=== PATIENT | male | born 1955 | race Caucasian/White ===

== ENCOUNTER → 2016-11-16 | Outpatient (CLI) | payer BC ==
[2016-01-22 13:45] VITALS: BP 136/83
[~2016-11-16] MED LIST: AMLO10TA2 PO; ASPI81TA2 PO; BISO1TAB4 PO; CHOL10003 PO; CITA10TA4 PO; FENO160T PO; SIMV20TA3 PO; TAMS0.4C2 PO; VENTOLIN HFA18 GM INH
--- NOTE | 2016-11-16 14:27 | KCIC ---
PROCEDURE Three-view lumbar spine series HISTORY Low back pain. Back pain and bilateral hip pain for 6 weeks. FINDINGS Mild dextroscoliosis is seen. No compression fracture or discitis or osteolytic process or anterolisthesis is seen. Mild degenerative endplate spurring is seen throughout the lumbar spine. IMPRESSION Mild dextroscoliosis and degenerative lumbar spondylosis. Electronically signed by: Raymond Pino MD (Nov 16, 2016 14:25:20)
== END | disposition home or self-care (01) ==
LOC: KCIC 13:25
PROVIDERS: ATTEND Family Medicine
DX: M54.5 Low back pain (principal); M47.896 Other spondylosis, lumbar region
CPT/HCPCS: 72100

== ENCOUNTER → 2017-04-21 | Outpatient (CLI) | payer BC ==
[2016-01-22 13:45] VITALS: BP 136/83
[~2017-04-21] MED LIST changes: +ASPI-630 PO; -ASPI81TA2 PO
--- NOTE | 2017-04-21 13:05 | KCIC ---
CHEST PA LATERAL History: Hypercalcemia Comparison: None. Findings: There is no infiltrate, pneumothorax, or effusion. The cardiac silhouette is within normal limits in size. There is a small although fairly opaque nodule of the right lung base. Impression: 1. There is no infiltrate. There is probable small although fairly opaque nodule of the right lung base. CT would be more sensitive for detection and evaluation of pulmonary nodules. Electronically signed by: Delvin Roland MD (04/21/2017 1:02 PM) [id number]
== END | disposition home or self-care (01) ==
LOC: KCIC 11:08
PROVIDERS: ATTEND Family Medicine
DX: E83.52 Hypercalcemia (principal); R91.8 Other nonspecific abnormal finding of lung field
CPT/HCPCS: 71020

== ENCOUNTER → 2019-03-06 | Outpatient (CLI) | payer BC ==
[2016-01-22 13:45] VITALS: BP 136/83
[~2019-03-06] MED LIST changes: -AMLO10TA2 PO; +AMLO10TA8 PO
--- NOTE | 2019-03-06 13:55 | RAD ---
Examination: RENAL COMPLETE BILATERAL History: Decreased renal function Comparison/Correlation: 09/23/2015 renal ultrasound exam Findings: Right kidney measures 11.9 cm x 6 cm x 6.2 cm. Left kidney measures 11.9 cm x 5 cm x 5.9 cm. Normal renal contours. Normal renal echotexture. No hydronephrosis. No suggestion of renal calculus. Urinary bladder is mostly decompressed. Impression: Unremarkable exam. Electronically signed by: aDkota Quiñones MD (03/06/2019 1:52 PM) [facility]
== END | disposition home or self-care (01) ==
LOC: US 12:22
PROVIDERS: ATTEND Family Medicine
DX: R94.4 Abnormal results of kidney function studies (principal)
CPT/HCPCS: 76770

== ENCOUNTER 2019-07-10 16:55 | Inpatient (IN) | payer BC ==
[~2019-07-10] VITALS: Ht 175.3 cm; Wt 100.9 kg
[~2019-07-10 16:55] MED LIST changes: +SIMV20TA18 PO; -SIMV20TA3 PO
--- NOTE | 2019-07-10 17:25 | PHYS DOC ---
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 Patient feels nauseous, having trouble breathing as well. Patient is a smoker, nonproductive cough for several days as well. he denies any recent travel or operation. Patient had no history of heart disease, no history of diabetes, no history of blood clot disorder. Patient has history of colon cancer, had partial colectomy done 9 years ago. He denies any fever. Patient denies any abdominal pain, no diarrhea, or constipation problem. Patient denied the pain radiated anywhere. Patient said the pain got worse with exertion or coughing. All other ROS is negative unless otherwise noted in HPI Review of Systems Review of Systems See above Current Medications Current Medications Current Medications Medications (Trade) Dose Ordered Sig/Jimbo Start Time Stop Time Status Last Admin Dose Admin Albuterol/ Ipratropium (Duoneb) 3 ml RTQID 07/10/19 20:00 07/11/19 19:59 Aspirin (Nasima Aspirin) 325 mg 1X ONCE 07/10/19 17:30 07/10/19 17:31 DC 07/10/19 17:42 325 MG Methylprednisolone Sodium Succinate (SOLU-Medrol 125MG VIAL) 125 mg 1X ONCE 07/10/19 17:30 07/10/19 17:31 DC 07/10/19 17:42 125 MG Nitroglycerin (Nitrostat) 0.4 mg PRN Q5MIN PRN 07/10/19 17:45 07/11/19 17:44 07/10/19 17:43 0.4 MG Ondansetron HCl (Zofran) 4 mg PRN Q8HRS PRN 07/10/19 17:45 07/11/19 17:44 Sodium Chloride 500 ml @ 500 mls/hr 1X ONCE 07/10/19 17:45 07/10/19 18:44 Allergies Allergies Allergies Coded Allergies Type Severity Reaction Last Updated Verified No Known Allergies Allergy Unknown 01/22/16 Yes Physical Exam Physical Exam See above Constitutional: Well developed, well nourished, no acute distress, non-toxic appearance. [] HENT: Normocephalic, atraumatic, bilateral external ears normal, oropharynx moist, no oral exudates, nose normal. [] Eyes: PERRLA, EOMI, conjunctiva normal, no discharge. [] Neck: Normal range of motion, no tenderness, supple, no stridor. [] Cardiovascular:Heart rate regular rhythm, no murmur [] Lungs & Thorax: Bilateral breath sounds with wheezing, decreased air movement in all lung carey. Abdomen: Bowel sounds normal, soft, no tenderness, no masses, no pulsatile masses. [] Skin: Warm, dry, no erythema, no rash. [] Back: No tenderness, no CVA tenderness. [] Extremities: No tenderness, no cyanosis, no clubbing, ROM intact, no edema. [] Neurologic: Alert and oriented X 3, normal motor function, normal sensory function, no focal deficits noted. [] Psychologic: Affect normal, judgement normal, mood normal. [] Current Patient Data Vital Signs Vital Signs Date Time Temp Pulse Resp B/P (MAP) Pulse Ox O2 Delivery O2 Flow Rate FiO2 07/10/19 17:43 62 138/86 07/10/19 17:31 96 Nasal Cannula 2.0 07/10/19 16:55 97.9 24 97.9 Lab Values Laboratory Tests Test 07/10/19 17:20 White Blood Count 10.6 x10^3/uL (4.0-11.0) Red Blood Count 5.30 x10^6/uL (4.30-5.70) Hemoglobin 16.5 g/dL (13.0-17.5) Hematocrit 48.2 % (39.0-53.0) Mean Corpuscular Volume 91 fL (79-100) Mean Corpuscular Hemoglobin 31 pg (25-35) Mean Corpuscular Hemoglobin Concent 34 g/dL (31-37) Red Cell Distribution Width 13.6 % (11.5-14.5) Platelet Count 326 x10^3/uL (140-400) Neutrophils (%) (Auto) 65 % (31-73) Lymphocytes (%) (Auto) 21 % (24-48) L Monocytes (%) (Auto) 11 % (0-9) H Eosinophils (%) (Auto) 2 % (0-3) Basophils (%) (Auto) 1 % (0-3) Neutrophils # (Auto) 6.9 x10^3/uL (1.8-7.7) Lymphocytes # (Auto) 2.2 x10^3/uL (1.0-4.8) Monocytes # (Auto) 1.1 x10^3/uL (0.0-1.1) Eosinophils # (Auto) 0.2 x10^3/uL (0.0-0.7) Basophils # (Auto) 0.1 x10^3/uL (0.0-0.2) Prothrombin Time 12.4 SEC (11.7-14.0) Prothrombin Time INR 1.0 (0.8-1.1) Sodium Level 141 mmol/L (136-145) Potassium Level 3.4 mmol/L (3.5-5.1) L Chloride Level 99 mmol/L (98-107) Carbon Dioxide Level 31 mmol/L (21-32) Anion Gap 11 (6-14) Blood Urea Nitrogen 26 mg/dL (8-26) Creatinine 1.9 mg/dL (0.7-1.3) H Estimated GFR (Cockcroft-Gault) 36.0 BUN/Creatinine Ratio 14 (6-20) Glucose Level 132 mg/dL (70-99) H Calcium Level 9.5 mg/dL (8.5-10.1) Magnesium Level 1.4 mg/dL (1.8-2.4) L Total Bilirubin 0.4 mg/dL (0.2-1.0) Aspartate Amino Transferase (AST) 17 U/L (15-37) Alanine Aminotransferase (ALT) 18 U/L (16-63) Alkaline Phosphatase 62 U/L (46-116) Troponin I Quantitative 0.030 ng/mL (0.000-0.055) KB-Ggm-H-Type Natriuretic Peptide 3490 pg/mL (0-124) H Total Protein 7.5 g/dL (6.4-8.2) Albumin 3.5 g/dL (3.4-5.0) Albumin/Globulin Ratio 0.9 (1.0-1.7) L Lipase 208 U/L (73-393) Laboratory Tests 11/12/19 17:20 Laboratory Tests 07/10/19 17:20 EKG EKG EKG WAS READ BY THIS PHYSICIAN AT 1704, RATE OF 57 BPM, NO STEMI, Q WAVE IN INFERIOR LEAD. Radiology/Procedures Radiology/Procedures [] Course & Med Decision Making Course & Med Decision Making Pertinent Labs and Imaging studies reviewed. (See chart for details) [] Dragon Disclaimer Dragon Disclaimer This electronic medical record was generated, in whole or in part, using a voice recognition dictation system. Departure Departure Impression: Primary Impression: Chest pain Additional Impression: COPD exacerbation Disposition: ADMITTED INPATIENT Admitting Physician: RYANN (DR. EUBANKS) Condition: STABLE Referrals: DEANNA VELÁZQUEZ MD (PCP) Problem Qualifiers SUSIE HO DO Jul 10, 2019 17:25
[2019-07-10 17:29] LABS: BASO # 0.1 x10^3/uL (0.0-0.2); BASO % 1 % (0-3); EOS # 0.2 x10^3/uL (0.0-0.7); EOS % 2 % (0-3); HEMATOCRIT 48.2 % (39.0-53.0); HEMOGLOBIN 16.5 g/dL (13.0-17.5); LYMPH # 2.2 x10^3/uL (1.0-4.8); LYMPH % 21 % (24-48); MEAN CORPUSCULAR HEMOGLOBIN 31 pg (25-35); MEAN CORPUSCULAR HGB CONC 34 g/dL (31-37); MEAN CORPUSCULAR VOLUME 91 fL (79-100); MONO # 1.1 x10^3/uL (0.0-1.1); MONO % 11 % (0-9); NEUT # 6.9 x10^3/uL (1.8-7.7); NEUT % 65 % (31-73); PLATELET COUNT 326 x10^3/uL (140-400); RED CELL DISTRIBUTION WIDTH 13.6 % (11.5-14.5); WHITE BLOOD COUNT 10.6 x10^3/uL (4.0-11.0)
[2019-07-10] MEDS ORDERED: ASPIRIN 325 MG TABLET PO ONE (17:30)
[2019-07-10] MEDS ORDERED: IPRATRPIUM/ALBUTEROL 0.5/2.5MG 3 ML NEBU. NEB ONE (17:30)
[2019-07-10] MEDS ORDERED: NITROGLYCERIN SUBLINGUAL 0.4 MG BOTTLE OF 25. SL PRN ×2 (17:30→17:45)
[2019-07-10] MEDS ORDERED: methylPREDNISolone SOD SUCC PF 125 MG/2 ML VIAL. IV ONE (17:30)
[2019-07-10 17:37] LABS: CALCIUM 9.5 mg/dL (8.5-10.1); CREATININE 1.9 mg/dL (0.7-1.3); POTASSIUM 3.4 mmol/L (3.5-5.1)
[2019-07-10 17:38] LABS: PROTHROMBIN TIME PATIENT 12.4 SEC (11.7-14.0)
[2019-07-10 17:44] LABS: ALBUMIN 3.5 g/dL (3.4-5.0); ALBUMIN/GLOBULIN RATIO 0.9 (1.0-1.7); MAGNESIUM 1.4 mg/dL (1.8-2.4); TOTAL BILIRUBIN 0.4 mg/dL (0.2-1.0); TOTAL PROTEIN 7.5 g/dL (6.4-8.2)
[2019-07-10] MEDS ORDERED: IV NORMAL SALINE 500ML BAG 500 ML IV ONE (17:45)
[2019-07-10] MEDS ORDERED: ONDANSETRON PF 4 MG/2 ML VIAL. IV PRN ×2 (17:45→20:45)
--- NOTE | 2019-07-10 17:57 | RAD ---
Exam: Chest one view INDICATION: Shortness of breath, cough TECHNIQUE: Frontal view of the chest Comparisons: 04/21/2017 FINDINGS: The cardiomediastinal silhouette and pulmonary vessels are within normal limits. Linear bandlike opacity noted at the left midlung, likely representing atelectasis. Remaining lungs are clear. No pleural effusion. IMPRESSION: Left mid and basilar atelectasis. Electronically signed by: Ana Dinh MD (07/10/2019 5:55 PM) [facility]
--- NOTE | 2019-07-10 18:19 | RAD ---
Examination: CT chest without contrast HISTORY: History of cough COMPARISON: 03/24/2011 TECHNIQUE: Axial CT images of the chest were performed without contrast. Coronal and sagittal reformats are performed Exposure: One or more of the following individualized dose reduction techniques were utilized for this examination: 1. Automated exposure control 2. Adjustment of the mA and/or kV according to patient size 3. Use of iterative reconstruction technique FINDINGS: The central airways are patent. Coronary artery calcifications identified. No evidence for significant mediastinal lymphadenopathy identified. 3 mm nodule identified in the right upper lobe of the lung. Small focus of airspace opacity identified in the right middle lobe of the lung, left lingula of the lung likely atelectasis or infiltrates. No evidence of pleural effusion or pneumothorax. The visualized noncontrasted liver, adrenals grossly appears unremarkable. Few calcified granulomas identified in the spleen. Mild bilateral perinephric fat stranding identified. Mild degenerative changes thoracic spine. IMPRESSION: 1. Small focus of airspace opacity identified in the right middle lobe, left lingula of the lung likely atelectasis or infiltrates. 2. 3 mm nodule identified in the right upper lobe with lung. Recommend follow-up CT in 12 months per Fleischner Society guidelines. Electronically signed by: Rupert Root MD (07/10/2019 6:17 PM) [facility]
[2019-07-10 19:40] VITALS: BP 152/91
[2019-07-10] MEDS ORDERED: LISI-334 PO (19:51)
[2019-07-10] MEDS ORDERED: ATOR40TA59 PO (19:54)
[2019-07-10] MEDS ORDERED: FINA5TAB4 PO (19:57)
[2019-07-10] MEDS ORDERED: IPRATRPIUM/ALBUTEROL 0.5/2.5MG 3 ML NEBU. NEB SCH (20:00)
--- NOTE | 2019-07-10 20:32 | PDOC1 ---
History and Physical Date of Admission Date of Admission DATE: 07/10/19 TIME: 20:29 Identification/Chief Complaint Chief Complaint seen in er , 64 year old male who presented to ER today for evaluation of substernal chest pain started last night. Patient feels nauseous, having trouble breathing Patient is a smoker, nonproductive cough for several days he denies any recent travel or operation. Patient had no history of heart disease, no history of diabetes, no history of blood clot disorder. 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 Past Surgical History: Other Additional Past Surgical Histo: COLOSTOMY WITH TAKEDOWN, CYST REMOVED FROM NOSE Alcohol Use: Rarely Drug Use: None fhx obesity Cardiovascular: HTN, Hyperlipidemia Family History Family History: Hypertension Social History Smoke: 1 pack per day ALCOHOL: occassional Drugs: None Current Problem List Problem List Problems Medical Problems: (1) Chest pain Status: Acute (2) COPD exacerbation Status: Acute Current Medications Current Medications Current Medications Aspirin (Nasima Aspirin) 325 mg 1X ONCE PO Last administered on 07/10/19at 17:42; Start 07/10/19 at 17:30; Stop 07/10/19 at 17:31; Status DC Nitroglycerin (Nitrostat) 0.4 mg PRN Q5MIN PRN SL CP RATING > 1/10; Start 07/10/19 at 17:30; Stop 07/10/19 at 17:39; Status DC Methylprednisolone Sodium Succinate (SOLU-Medrol 125MG VIAL) 125 mg 1X ONCE IV Last administered on 07/10/19at 17:42; Start 07/10/19 at 17:30; Stop 07/10/19 at 17:31; Status DC Albuterol/ Ipratropium (Duoneb) 3 ml 1X ONCE NEB Last administered on 07/10/19at 17:31; Start 07/10/19 at 17:30; Stop 07/10/19 at 17:31; Status DC Ondansetron HCl (Zofran) 4 mg PRN Q8HRS PRN IV NAUSEA/VOMITING; Start 07/10/19 at 17:45; Stop 07/11/19 at 17:44 Nitroglycerin (Nitrostat) 0.4 mg PRN Q5MIN PRN SL CHEST PAIN Last administered on 07/10/19at 17:43; Start 07/10/19 at 17:45; Stop 07/11/19 at 17:44 Albuterol/ Ipratropium (Duoneb) 3 ml RTQID NEB ; Start 07/10/19 at 20:00; Stop 07/11/19 at 19:59 Sodium Chloride 500 ml @ 500 mls/hr 1X ONCE IV Last administered on 07/10/19at 18:28; Start 07/10/19 at 17:45; Stop 07/10/19 at 18:44; Status DC Enoxaparin Sodium (Lovenox 100mg Syringe) 100 mg 1X ONCE SQ Last administered on 07/10/19at 18:27; Start 07/10/19 at 18:00; Stop 07/10/19 at 18:01; Status DC Active Scripts Active Reported Finasteride 5 Mg Tablet 5 Mg PO DAILY Atorvastatin Calcium 40 Mg Tablet 40 Mg PO HS Lisinopril 20 Mg Tablet 20 Mg PO DAILY Aspirin 81 Mg Tab.chew 1 Tab PO DAILY Citalopram Hbr (Citalopram Hydrobromide) 10 Mg Tablet 10 Mg PO DAILY Fenofibrate 160 Mg Tablet 160 Mg PO DAILY Ventolin Hfa Inhaler (Albuterol Sulfate) 18 Gm Hfa.aer.ad 1 Puff INH Q6HRS PRN Bisoprolol-Hctz 5-6.25 Mg Tab (Bisoprolol Fumarate/Hctz) 1 Each Tablet 1 Tab PO DAILY Amlodipine Besylate 10 Mg Tablet 10 Mg PO DAILY Allergies Allergies: Coded Allergies: No Known Allergies (Verified Allergy, Unknown, 01/22/16) ROS Review of System 14 pt ros otherwise neg General: No: Chills, Night Sweats, Fatigue, Malaise, Appetite, Other PSYCHOLOGICAL ROS: No: Anxiety, Behavioral Disorder, Concentration difficultie, Decreased libido, Depression, Disorientation, Hallucinations, Hostility, Irritablity, Memory difficulties, Mood Swings, Obsessive thoughts, Physical abuse, Sexual abuse, Sleep disturbances, Suicidal ideation, Other HEENT: No: Heacaches, Visual Changes, Hearing change, Nasal congestion, Nasal discharge, Oral lesions, Sinus pain, Sore Throat, Epistaxis, Sneezing, Snoring, Tinnitus, Vertigo, Vocal changes, Other ALLERGY AND IMMUNOLOGY: No: Hives, Insect Bite Sensitivity, Itchy/Watery Eyes, Nasal Congestion, Post Nasal Drip, Seasonal Allergies, Other Hematological and Lymphatic: No: Bleeding Problems, Blood Clots, Blood Transfusions, Brusing, Night Sweats, Pallor, Swollen Lymph Nodes, Other Respiratory: YES: Cough, Shortness of breath, SOB with excertion, Sputum Changes, Wheezing; No: Hemoptysis, Orthopnea, Pleuritic Pain, Stridor, Tachypnea, Other Cardiovascular: yes Chest Pain; No Palpitations, No Orthopnea, No Paroxysmal Noc. Dyspnea, No Edema, No Lt Headedness, No Other Gastrointestinal: No Nausea, No Vomiting, No Abdominal Pain, No Diarrhea, No Constipation, No Melena, No Hematochezia, No Other Musculoskeletal: No Gait Disturbance, No Joint Pain, No Joint Stiffness, No Joint Swelling, No Muscle Pain, No Muscular Weakness, No Pain In:, No Swelling In:, No Other Skin: No Dry Skin, No Eczema, No Hair Changes, No Lumps, No Mole Changes, No Mottling, No Nail Changes, No Pruritus, No Rash, No Skin Lesion Changes, No Other, No Acne Physical Exam Physical Exam Physical Exam Physical Exam Constitutional: Well developed, well nourished, no acute distress, non-toxic appearance. [] HENT: Normocephalic, atraumatic, bilateral external ears normal, oropharynx moist, no oral exudates, nose normal. [] Eyes: PERRLA, EOMI, conjunctiva normal, no discharge. [] Neck: Normal range of motion, no tenderness, supple, no stridor. [] Cardiovascular:Heart rate regular rhythm, no murmur [] Lungs & Thorax: Bilateral breath sounds with wheezing, decreased air movement in all lung carey. Abdomen: Bowel sounds normal, soft, no tenderness, no masses, no pulsatile masses. post op changes, abd wall hernia [] Skin: Warm, dry, no erythema, no rash. [] Back: No tenderness, no CVA tenderness. [] Extremities: No tenderness, no cyanosis, no clubbing, ROM intact, no edema. [] Neurologic: Alert and oriented X 3, normal motor function, normal sensory function, no focal deficits noted. [] Psychologic: Affect normal, judgement normal, mood normal. [] General: Alert, Oriented X3, Cooperative HEENT: Atraumatic Heart: RRR Breasts: Not examined Abdomen: Normal bowel sounds, Soft Rectal Exam: not examined PELVIC: Examination not indicated Extremities: No clubbing, No cyanosis Neuro: Normal speech, Cranial nerves 3-12 NL Psych/Mental Status: Mental status NL, Mood NL Vitals Vitals Vital Signs Date Time Temp Pulse Resp B/P (MAP) Pulse Ox O2 Delivery O2 Flow Rate FiO2 07/10/19 19:47 96 Nasal Cannula 2.0 07/10/19 19:35 73 24 154/86 (108) 07/10/19 16:55 97.9 97.9 Labs Labs Laboratory Tests Test 07/10/19 17:20 White Blood Count 10.6 x10^3/uL (4.0-11.0) Red Blood Count 5.30 x10^6/uL (4.30-5.70) Hemoglobin 16.5 g/dL (13.0-17.5) Hematocrit 48.2 % (39.0-53.0) Mean Corpuscular Volume 91 fL (79-100) Mean Corpuscular Hemoglobin 31 pg (25-35) Mean Corpuscular Hemoglobin Concent 34 g/dL (31-37) Red Cell Distribution Width 13.6 % (11.5-14.5) Platelet Count 326 x10^3/uL (140-400) Neutrophils (%) (Auto) 65 % (31-73) Lymphocytes (%) (Auto) 21 % (24-48) Monocytes (%) (Auto) 11 % (0-9) Eosinophils (%) (Auto) 2 % (0-3) Basophils (%) (Auto) 1 % (0-3) Neutrophils # (Auto) 6.9 x10^3/uL (1.8-7.7) Lymphocytes # (Auto) 2.2 x10^3/uL (1.0-4.8) Monocytes # (Auto) 1.1 x10^3/uL (0.0-1.1) Eosinophils # (Auto) 0.2 x10^3/uL (0.0-0.7) Basophils # (Auto) 0.1 x10^3/uL (0.0-0.2) Prothrombin Time 12.4 SEC (11.7-14.0) Prothromb Time International Ratio 1.0 (0.8-1.1) Sodium Level 141 mmol/L (136-145) Potassium Level 3.4 mmol/L (3.5-5.1) Chloride Level 99 mmol/L (98-107) Carbon Dioxide Level 31 mmol/L (21-32) Anion Gap 11 (6-14) Blood Urea Nitrogen 26 mg/dL (8-26) Creatinine 1.9 mg/dL (0.7-1.3) Estimated GFR (Cockcroft-Gault) 36.0 BUN/Creatinine Ratio 14 (6-20) Glucose Level 132 mg/dL (70-99) Calcium Level 9.5 mg/dL (8.5-10.1) Magnesium Level 1.4 mg/dL (1.8-2.4) Total Bilirubin 0.4 mg/dL (0.2-1.0) Aspartate Amino Transf (AST/SGOT) 17 U/L (15-37) Alanine Aminotransferase (ALT/SGPT) 18 U/L (16-63) Alkaline Phosphatase 62 U/L (46-116) Troponin I Quantitative 0.030 ng/mL (0.000-0.055) EP-Jdx-U-Type Natriuretic Peptide 3490 pg/mL (0-124) Total Protein 7.5 g/dL (6.4-8.2) Albumin 3.5 g/dL (3.4-5.0) Albumin/Globulin Ratio 0.9 (1.0-1.7) Lipase 208 U/L (73-393) Laboratory Tests Test 07/10/19 17:20 White Blood Count 10.6 x10^3/uL (4.0-11.0) Red Blood Count 5.30 x10^6/uL (4.30-5.70) Hemoglobin 16.5 g/dL (13.0-17.5) Hematocrit 48.2 % (39.0-53.0) Mean Corpuscular Volume 91 fL (79-100) Mean Corpuscular Hemoglobin 31 pg (25-35) Mean Corpuscular Hemoglobin Concent 34 g/dL (31-37) Red Cell Distribution Width 13.6 % (11.5-14.5) Platelet Count 326 x10^3/uL (140-400) Neutrophils (%) (Auto) 65 % (31-73) Lymphocytes (%) (Auto) 21 % (24-48) Monocytes (%) (Auto) 11 % (0-9) Eosinophils (%) (Auto) 2 % (0-3) Basophils (%) (Auto) 1 % (0-3) Neutrophils # (Auto) 6.9 x10^3/uL (1.8-7.7) Lymphocytes # (Auto) 2.2 x10^3/uL (1.0-4.8) Monocytes # (Auto) 1.1 x10^3/uL (0.0-1.1) Eosinophils # (Auto) 0.2 x10^3/uL (0.0-0.7) Basophils # (Auto) 0.1 x10^3/uL (0.0-0.2) Prothrombin Time 12.4 SEC (11.7-14.0) Prothromb Time International Ratio 1.0 (0.8-1.1) Sodium Level 141 mmol/L (136-145) Potassium Level 3.4 mmol/L (3.5-5.1) Chloride Level 99 mmol/L (98-107) Carbon Dioxide Level 31 mmol/L (21-32) Anion Gap 11 (6-14) Blood Urea Nitrogen 26 mg/dL (8-26) Creatinine 1.9 mg/dL (0.7-1.3) Estimated GFR (Cockcroft-Gault) 36.0 BUN/Creatinine Ratio 14 (6-20) Glucose Level 132 mg/dL (70-99) Calcium Level 9.5 mg/dL (8.5-10.1) Magnesium Level 1.4 mg/dL (1.8-2.4) Total Bilirubin 0.4 mg/dL (0.2-1.0) Aspartate Amino Transf (AST/SGOT) 17 U/L (15-37) Alanine Aminotransferase (ALT/SGPT) 18 U/L (16-63) Alkaline Phosphatase 62 U/L (46-116) Troponin I Quantitative 0.030 ng/mL (0.000-0.055) YN-Hqr-L-Type Natriuretic Peptide 3490 pg/mL (0-124) Total Protein 7.5 g/dL (6.4-8.2) Albumin 3.5 g/dL (3.4-5.0) Albumin/Globulin Ratio 0.9 (1.0-1.7) Lipase 208 U/L (73-393) Images Images REASON: cough, soa, chest pain PROCEDURE: CT CHEST WO CONTRAST Examination: CT chest without contrast HISTORY: History of cough COMPARISON: 03/24/2011 TECHNIQUE: Axial CT images of the chest were performed without contrast. Coronal and sagittal reformats are performed Exposure: One or more of the following individualized dose reduction techniques were utilized for this examination: 1. Automated exposure control 2. Adjustment of the mA and/or kV according to patient size 3. Use of iterative reconstruction technique FINDINGS: The central airways are patent. Coronary artery calcifications identified. No evidence for significant mediastinal lymphadenopathy identified. 3 mm nodule identified in the right upper lobe of the lung. Small focus of airspace opacity identified in the right middle lobe of the lung, left lingula of the lung likely atelectasis or infiltrates. No evidence of pleural effusion or pneumothorax. The visualized noncontrasted liver, adrenals grossly appears unremarkable. Few calcified granulomas identified in the spleen. Mild bilateral perinephric fat stranding identified. Mild degenerative changes thoracic spine. IMPRESSION: 1. Small focus of airspace opacity identified in the right middle lobe, left lingula of the lung likely atelectasis or infiltrates. 2. 3 mm nodule identified in the right upper lobe with lung. Recommend follow-up CT in 12 months per Fleischner Society guidelines. Electronically signed by: Rupert Root MD (07/10/2019 6:17 PM) [facility] VTE Prophylaxis Ordered VTE Prophylaxis Devices: Yes VTE Pharmacological Prophylaxi: Yes Assessment/Plan Assessment/Plan IMPRESSION: 1. Small focus of airspace opacity identified in the right middle lobe, left lingula of the lung likely atelectasis vs infiltrates. 2. 3 mm nodule identified in the right upper lobe // lung. 3. Chest pain with concern for ASHD., MODERATE RISK 4. tobacco abuse disorder 5. acute COPD exacerbation 6. hypertension 7. hyperlipidemia 8. ACUTE HYPOXIC RESP FAILURE plan admit cvc bed serial troponin i echo cardiology consult flp iv zosyn duonebs qid pulm consult dvt prophylaxis TOBACCO CESSATION DISCUSSED IV STEROID TAPER O2 SUPPORT PO PROTONIX GI PROPHYLAXIS BRIGIDA EUBANKS MD Jul 10, 2019 20:32
[2019-07-10] MEDS ORDERED: ZOLPIDEM 5 MG TABLET. PO PRN (20:45)
[2019-07-10] MEDS ORDERED: ACETAMINOPHEN 325 MG TABLET. PO PRN (20:45)
[2019-07-10] MEDS ORDERED: DOCUSATE SODIUM 100 MG CAPSULE. PO PRN (20:45)
[2019-07-10] MEDS ORDERED: MAG HYDROX/ALUMINUM HYD/SIMETH 30 ML ORAL.SUSP PO PRN (20:45)
[2019-07-10] MEDS ORDERED: LORazepam 0.5 MG TABLET PO PRN (20:45)
[2019-07-10] MEDS ORDERED: 0.9 % SODIUM CHLORIDE 10 ML DISP.SYRIN. IV PRN (20:45)
[2019-07-10] MEDS ORDERED: cloNIDine HCL 0.1 MG TABLET PO PRN (20:45)
[2019-07-10] MEDS ORDERED: ALBUTEROL SULFATE 2.5 MG/3 ML NEBU. NEB PRN (21:00)
[2019-07-10] MEDS: ATORVASTATIN CALCIUM 40 MG TABLET. PO SCH (22:51)
[2019-07-10] MEDS: PIPERACILLIN/TAZOBACTAM 3.375 GM in IV NORMAL SALINE 50ML 50 ML IV SCH (22:52)
[2019-07-10 23:40] VITALS: BP 129/65
[2019-07-11] MEDS: IPRATRPIUM/ALBUTEROL 0.5/2.5MG 3 ML NEBU. NEB SCH ×7 (00:19→23:13)
[2019-07-11] MEDS: PIPERACILLIN/TAZOBACTAM 3.375 GM in IV NORMAL SALINE 50ML 50 ML IV SCH ×5 (01:33→23:51)
[2019-07-11 03:50] VITALS: BP 106/62
--- NOTE | 2019-07-11 07:23 | EKG ---
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
[2019-07-11 07:36] VITALS: BP 125/69
[2019-07-11] MEDS: hydroCHLOROthiazide 25 MG TABLET PO SCH (08:15)
[2019-07-11] MEDS: ATENOLOL 50 MG TABLET. PO SCH (08:15)
[2019-07-11] MEDS: LISINOPRIL 20 MG TABLET PO SCH (08:16)
[2019-07-11] MEDS: FINASTERIDE 5 MG TABLET. PO SCH (08:16)
[2019-07-11] MEDS: ASPIRIN CHEWABLE 81 MG TABLET. PO SCH (08:16)
[2019-07-11] MEDS: CITALOPRAM 10 MG TABLET. PO SCH (08:16)
[2019-07-11] MEDS: amLODIPine BESYLATE 10 MG TABLET PO SCH (08:17)
[2019-07-11] MEDS: ENOXAPARIN 40 MG/0.4 ML SYRINGE. SQ SCH (08:17)
[2019-07-11] MEDS: FENOFIBRATE,MICRONIZED 134 MG CAPSULE PO SCH (08:17)
--- NOTE | 2019-07-11 10:16 | PDOC ---
[employer] PROGRESS NOTE Chief Complaint Chief Complaint 1. Small focus of airspace opacity identified in the right middle lobe, left lingula of the lung likely atelectasis vs infiltrates. 2. 3 mm nodule identified in the right upper lobe // lung. 3. Chest pain with concern for ASHD., MODERATE RISK 4. tobacco abuse disorder 5. acute COPD exacerbation 6. hypertension 7. hyperlipidemia 8. ACUTE HYPOXIC RESP FAILURE History of Present Illness History of Present Illness 07/11/19 Pt seen and examined DW RN Chart reviewed Vitals/I&O Vitals/I&O: Vital Signs Date Time Temp Pulse Resp B/P (MAP) Pulse Ox O2 Delivery O2 Flow Rate FiO2 07/11/19 08:27 Nasal Cannula 2.0 07/11/19 08:17 109 125/69 07/11/19 08:00 95 07/11/19 07:36 97.3 18 97.3 I & O 07/10/19 07/10/19 07/11/19 15:00 23:00 07:00 Intake Total 360 ml 550 ml Output Total 100 ml 150 ml Balance 260 ml 400 ml Physical Exam General: Alert, Oriented X3, Cooperative Heart: Regular rate Lungs: Clear Abdomen: Normal bowel sounds, Soft Extremities: No clubbing, No cyanosis Skin: No rashes Labs Labs: Laboratory Tests Test 07/10/19 17:20 White Blood Count 10.6 x10^3/uL (4.0-11.0) Red Blood Count 5.30 x10^6/uL (4.30-5.70) Hemoglobin 16.5 g/dL (13.0-17.5) Hematocrit 48.2 % (39.0-53.0) Mean Corpuscular Volume 91 fL (79-100) Mean Corpuscular Hemoglobin 31 pg (25-35) Mean Corpuscular Hemoglobin Concent 34 g/dL (31-37) Red Cell Distribution Width 13.6 % (11.5-14.5) Platelet Count 326 x10^3/uL (140-400) Neutrophils (%) (Auto) 65 % (31-73) Lymphocytes (%) (Auto) 21 % (24-48) Monocytes (%) (Auto) 11 % (0-9) Eosinophils (%) (Auto) 2 % (0-3) Basophils (%) (Auto) 1 % (0-3) Neutrophils # (Auto) 6.9 x10^3/uL (1.8-7.7) Lymphocytes # (Auto) 2.2 x10^3/uL (1.0-4.8) Monocytes # (Auto) 1.1 x10^3/uL (0.0-1.1) Eosinophils # (Auto) 0.2 x10^3/uL (0.0-0.7) Basophils # (Auto) 0.1 x10^3/uL (0.0-0.2) Prothrombin Time 12.4 SEC (11.7-14.0) Prothromb Time International Ratio 1.0 (0.8-1.1) Sodium Level 141 mmol/L (136-145) Potassium Level 3.4 mmol/L (3.5-5.1) Chloride Level 99 mmol/L (98-107) Carbon Dioxide Level 31 mmol/L (21-32) Anion Gap 11 (6-14) Blood Urea Nitrogen 26 mg/dL (8-26) Creatinine 1.9 mg/dL (0.7-1.3) Estimated GFR (Cockcroft-Gault) 36.0 BUN/Creatinine Ratio 14 (6-20) Glucose Level 132 mg/dL (70-99) Calcium Level 9.5 mg/dL (8.5-10.1) Magnesium Level 1.4 mg/dL (1.8-2.4) Total Bilirubin 0.4 mg/dL (0.2-1.0) Aspartate Amino Transf (AST/SGOT) 17 U/L (15-37) Alanine Aminotransferase (ALT/SGPT) 18 U/L (16-63) Alkaline Phosphatase 62 U/L (46-116) Troponin I Quantitative 0.030 ng/mL (0.000-0.055) GL-Kvh-Y-Type Natriuretic Peptide 3490 pg/mL (0-124) Total Protein 7.5 g/dL (6.4-8.2) Albumin 3.5 g/dL (3.4-5.0) Albumin/Globulin Ratio 0.9 (1.0-1.7) Lipase 208 U/L (73-393) Review of Systems Review of Systems: CV: (-) CP Lungs: (+) SOB Assessment and Plan Assessmemt and Plan Problems Medical Problems: (1) Chest pain Status: Acute (2) COPD exacerbation Status: Acute 1. Small focus of airspace opacity identified in the right middle lobe, left lingula of the lung likely atelectasis vs infiltrates. 2. 3 mm nodule identified in the right upper lobe // lung. 3. Chest pain with concern for ASHD., MODERATE RISK 4. tobacco abuse disorder 5. acute COPD exacerbation 6. hypertension 7. hyperlipidemia 8. ACUTE HYPOXIC RESP FAILURE Plan: steroids breathing tx O2 abx serial troponin EKG Echo ASA await cardiology input Comment Review of Relevant I have reviewed the following items kati (where applicable) has been applied. Medications: Current Medications Medications (Trade) Dose Ordered Sig/Jimbo Route PRN Reason Start Time Stop Time Status Last Admin Dose Admin Aspirin (Nasima Aspirin) 325 mg 1X ONCE PO 07/10/19 17:30 07/10/19 17:31 DC 07/10/19 17:42 Methylprednisolone Sodium Succinate (SOLU-Medrol 125MG VIAL) 125 mg 1X ONCE IV 07/10/19 17:30 07/10/19 17:31 DC 07/10/19 17:42 Albuterol/ Ipratropium (Duoneb) 3 ml 1X ONCE NEB 07/10/19 17:30 07/10/19 17:31 DC 07/10/19 17:31 Nitroglycerin (Nitrostat) 0.4 mg PRN Q5MIN PRN SL CHEST PAIN 07/10/19 17:45 07/11/19 17:44 07/10/19 17:43 Albuterol/ Ipratropium (Duoneb) 3 ml RTQID NEB 07/10/19 20:00 07/10/19 20:53 DC 07/10/19 20:00 Sodium Chloride 500 ml @ 500 mls/hr 1X ONCE IV 07/10/19 17:45 07/10/19 18:44 DC 07/10/19 18:28 Enoxaparin Sodium (Lovenox 100mg Syringe) 100 mg 1X ONCE SQ 07/10/19 18:00 07/10/19 18:01 DC 07/10/19 18:27 Amlodipine Besylate (Norvasc) 10 mg DAILY PO 07/11/19 09:00 07/11/19 08:17 Aspirin (Children'S Aspirin) 81 mg DAILY PO 07/11/19 09:00 07/11/19 08:16 Atorvastatin Calcium (Lipitor) 40 mg HS PO 07/10/19 21:00 07/10/19 22:51 Citalopram Hydrobromide (CeleXA) 10 mg DAILY PO 07/11/19 09:00 07/11/19 08:16 Finasteride (Proscar) 5 mg DAILY PO 07/11/19 09:00 07/11/19 08:16 Lisinopril (Prinivil) 20 mg DAILY PO 07/11/19 09:00 07/11/19 08:16 Atenolol (Tenormin) 50 mg DAILY PO 07/11/19 09:00 07/11/19 08:15 Fenofibrate (Lofibra) 134 mg DAILY PO 07/11/19 09:00 07/11/19 08:17 Albuterol/ Ipratropium (Duoneb) 3 ml Q4H NEB 07/11/19 00:00 07/11/19 08:00 Enoxaparin Sodium (Lovenox 40mg Syringe) 40 mg DAILY SQ 07/11/19 09:00 07/11/19 08:17 Piperacillin Sod/ Tazobactam Sod 3.375 gm/Sodium Chloride 50 ml @ 100 mls/hr Q6HRS IV 07/10/19 21:30 07/11/19 05:20 Hydrochlorothiazide (Hydrodiuril) 6.25 mg DAILY PO 07/11/19 09:00 07/11/19 08:15 OMERO PASTOR III DO Jul 11, 2019 10:15
[2019-07-11 11:05] VITALS: BP 132/72
--- NOTE | 2019-07-11 12:23 | CONS ---
DATE OF CONSULTATION: PULMONARY CONSULTATION ATTENDING PHYSICIAN: Dr. Shahab Farley REASON FOR CONSULTATION: Chest pain. HISTORY OF PRESENT ILLNESS: The patient is a 64-year-old male who has history of COPD with ongoing tobaccoism. He is normally not on oxygen. He was brought into the hospital with substernal chest pain, which started last night. The patient said he felt nauseous. He was short of breath and wheezing as well. The patient states he has a mild nonproductive cough, which is no different than his everyday mild cough. No fever, no chills. No headaches. No vomiting or diarrhea. He was seen in the Emergency Room. The patient underwent a CT of the chest, which was performed without the contrast and I reviewed the CT chest. There is very faint mild ground glass opacity in the right middle lobe and also in the lingula, likely nonspecific finding. The radiologist also reported a 3 mm nodule in the right upper lobe. The patient had an echocardiogram and Cardiology seeing him for chest pain. 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 History of hyperlipidemia. PAST SURGICAL HISTORY: Including colostomy with takedown and cyst removed from the nose. FAMILY HISTORY: Hypertension. SOCIAL HISTORY: Less than 1 pack per day, but has been smoking for 40 years. ALLERGIES: None. MEDICATIONS: Reviewed as listed in the MRAD and including Lovenox and Zosyn and DuoNeb. REVIEW OF SYSTEMS: Twelve-point system obtained. Pertinent positives discussed in my history of present illness, otherwise noncontributory. All systems that were negative were reviewed as well. PHYSICAL EXAMINATION: VITAL SIGNS: Reviewed. Blood pressure stable, pulse ox 96% on 2 liters, afebrile. HEENT: Sclerae nonicteric. NECK: Supple. LUNGS: With clear breath sounds. CARDIOVASCULAR: With a regular rate. ABDOMEN: Soft. He has an abdominal wall hernia on the right lower quadrant. He has multiple scars from prior surgeries. EXTREMITIES: No pitting edema. LABORATORY DATA: Reviewed. White cell count 10.6, hemoglobin 16.5 and platelets are 326. BUN 26 and a creatinine of 1.9. ProBNP is 3490. IMPRESSION: 1. Dyspnea with acute hypoxic respiratory failure and chest pain. The patient's symptoms are combination of chronic obstructive pulmonary disease exacerbation along with likely anginal type chest pain. 2. Underlying chronic obstructive pulmonary disease with ongoing tobaccoism. Now comes in with an exacerbation. 3. A 3 mm right upper lobe tiny nodule. Does not need any intervention except a followup CT in a year. The patient sees my partner, Dr. Mobley in the office and I have recommended to follow with him. Another CT chest abnormalities including faint ground glass opacity in the right middle lobe and lingula is nonspecific and clinically does not appear to have any infectious etiology. RECOMMENDATIONS: 1. Antibiotics can be deescalated soon. 2. Continue bronchodilators. 3. Smoking cessation counseling provided. 4. Wean off oxygen to keep sats 92 and above. 5. Discussed with RN. We will await for any further Cardiology recommendations. If the stress test would be done as an outpatient then he could be discharged. 6. Follow up with Dr. Mobley and will need a CT chest, follow up on the nodule in a year from now. EMMETT LOPEZ MD DR: ALICE/pan JOB#: [id number] / [id number]
--- NOTE | 2019-07-11 12:53 | PDOC2 ---
ADELAIDE ROSARIO AUDIO INSTALLER 07/11/19 1253: CARDIAC CONSULT DATE OF CONSULT Date of Consult DATE: 07/11/19 TIME: 12:39 REASON FOR CONSULT Reason for Consult: Chest pain REFERRING PHYSICIAN Referring Physician: John SOURCE Source: Chart review, Patient HISTORY OF PRESENT ILLNESS HISTORY OF PRESENT ILLNESS This is a pleasant 64 yo male admitted for complains of cough and SOA. Reports that he has been having increased SOA particularly with exertion in the last 2 days. Also with this he felt that he was having chest pressure but radiating discomfort. He has been coughing out yellowih sputum with no compains of throat irritation, nasal congestion or ear fullness and no fever or chills. Denies any palpitations and no nausea or vomiting. He does not use O2 at home and continues to smoke tobacco. No GERD symptoms. Denies any CAD, arrhythmias. No prior cardiac workup, PAST MEDICAL HISTORY Cardiovascular: HTN, Hyperlipidemia Pulmonary: COPD GI: Other (bowel sarcoma) Psych: Anxiety Musculoskeletal: Osteoarthritis Renal/: Benign prostatic enlarg. Endocrine: Diabetes (2) PAST SURGICAL HISTORY Past Surgical History: Colon Resection, Other (colostomy placement and takedown; ventral hernia repair) FAMILY HISTORY Family History: Heart Disease SOCIAL HISTORY Smoke: <1 pack per day ALCOHOL: occassional Drugs: None Lives: Alone CURRENT MEDICATIONS CURRENT MEDICATIONS Current Medications Medications (Trade) Dose Ordered Sig/Jimbo Route PRN Reason Start Time Stop Time Status Last Admin Dose Admin Aspirin (Nasima Aspirin) 325 mg 1X ONCE PO 07/10/19 17:30 07/10/19 17:31 DC 07/10/19 17:42 Methylprednisolone Sodium Succinate (SOLU-Medrol 125MG VIAL) 125 mg 1X ONCE IV 07/10/19 17:30 07/10/19 17:31 DC 07/10/19 17:42 Albuterol/ Ipratropium (Duoneb) 3 ml 1X ONCE NEB 07/10/19 17:30 07/10/19 17:31 DC 07/10/19 17:31 Nitroglycerin (Nitrostat) 0.4 mg PRN Q5MIN PRN SL CHEST PAIN 07/10/19 17:45 07/11/19 17:44 07/10/19 17:43 Albuterol/ Ipratropium (Duoneb) 3 ml RTQID NEB 07/10/19 20:00 07/10/19 20:53 DC 07/10/19 20:00 Sodium Chloride 500 ml @ 500 mls/hr 1X ONCE IV 07/10/19 17:45 07/10/19 18:44 DC 07/10/19 18:28 Enoxaparin Sodium (Lovenox 100mg Syringe) 100 mg 1X ONCE SQ 07/10/19 18:00 07/10/19 18:01 DC 07/10/19 18:27 Amlodipine Besylate (Norvasc) 10 mg DAILY PO 07/11/19 09:00 07/11/19 08:17 Aspirin (Children'S Aspirin) 81 mg DAILY PO 07/11/19 09:00 07/11/19 08:16 Atorvastatin Calcium (Lipitor) 40 mg HS PO 07/10/19 21:00 07/10/19 22:51 Citalopram Hydrobromide (CeleXA) 10 mg DAILY PO 07/11/19 09:00 07/11/19 08:16 Finasteride (Proscar) 5 mg DAILY PO 07/11/19 09:00 07/11/19 08:16 Lisinopril (Prinivil) 20 mg DAILY PO 07/11/19 09:00 07/11/19 08:16 Atenolol (Tenormin) 50 mg DAILY PO 07/11/19 09:00 07/11/19 08:15 Fenofibrate (Lofibra) 134 mg DAILY PO 07/11/19 09:00 07/11/19 08:17 Albuterol/ Ipratropium (Duoneb) 3 ml Q4H NEB 07/11/19 00:00 07/11/19 12:05 Enoxaparin Sodium (Lovenox 40mg Syringe) 40 mg DAILY SQ 07/11/19 09:00 07/11/19 08:17 Piperacillin Sod/ Tazobactam Sod 3.375 gm/Sodium Chloride 50 ml @ 100 mls/hr Q6HRS IV 07/10/19 21:30 07/11/19 12:29 Hydrochlorothiazide (Hydrodiuril) 6.25 mg DAILY PO 07/11/19 09:00 07/11/19 08:15 ALLERGIES ALLERGIES: Coded Allergies: No Known Drug Allergies (Unverified , 07/10/19) ROS Review of System 14 point ROS evaluated with pertinent positives noted per HPI PHYSICAL EXAM General: Alert, Oriented X3, Cooperative, No acute distress HEENT: Atraumatic, Mucous membr. moist/pink Lungs: Other (dimnished with wheeze) Heart: Regular rate (SR), Other (distant heart sounds) Abdomen: Soft, No tenderness Extremities: No cyanosis, Other (trace Le edema) Skin: No breakdown Neuro: Normal speech, Sensation intact Psych/Mental Status: Mental status NL, Mood NL MUSCULOSKELETAL: Osteoarthritic changes both hands VITALS/I&O VITALS/I&O: Vital Signs Date Time Temp Pulse Resp B/P (MAP) Pulse Ox O2 Delivery O2 Flow Rate FiO2 07/11/19 12:06 94 Nasal Cannula 2.0 07/11/19 11:05 97.7 87 18 132/72 (92) 97.7 I & O 07/10/19 07/10/19 07/11/19 15:00 23:00 07:00 Intake Total 360 ml 550 ml Output Total 100 ml 150 ml Balance 260 ml 400 ml LABS Lab: Laboratory Tests Test 07/10/19 17:20 White Blood Count 10.6 x10^3/uL (4.0-11.0) Red Blood Count 5.30 x10^6/uL (4.30-5.70) Hemoglobin 16.5 g/dL (13.0-17.5) Hematocrit 48.2 % (39.0-53.0) Mean Corpuscular Volume 91 fL (79-100) Mean Corpuscular Hemoglobin 31 pg (25-35) Mean Corpuscular Hemoglobin Concent 34 g/dL (31-37) Red Cell Distribution Width 13.6 % (11.5-14.5) Platelet Count 326 x10^3/uL (140-400) Neutrophils (%) (Auto) 65 % (31-73) Lymphocytes (%) (Auto) 21 % (24-48) L Monocytes (%) (Auto) 11 % (0-9) H Eosinophils (%) (Auto) 2 % (0-3) Basophils (%) (Auto) 1 % (0-3) Neutrophils # (Auto) 6.9 x10^3/uL (1.8-7.7) Lymphocytes # (Auto) 2.2 x10^3/uL (1.0-4.8) Monocytes # (Auto) 1.1 x10^3/uL (0.0-1.1) Eosinophils # (Auto) 0.2 x10^3/uL (0.0-0.7) Basophils # (Auto) 0.1 x10^3/uL (0.0-0.2) Prothrombin Time 12.4 SEC (11.7-14.0) Prothrombin Time INR 1.0 (0.8-1.1) Sodium Level 141 mmol/L (136-145) Potassium Level 3.4 mmol/L (3.5-5.1) L Chloride Level 99 mmol/L (98-107) Carbon Dioxide Level 31 mmol/L (21-32) Anion Gap 11 (6-14) Blood Urea Nitrogen 26 mg/dL (8-26) Creatinine 1.9 mg/dL (0.7-1.3) H Estimated GFR (Cockcroft-Gault) 36.0 BUN/Creatinine Ratio 14 (6-20) Glucose Level 132 mg/dL (70-99) H Calcium Level 9.5 mg/dL (8.5-10.1) Magnesium Level 1.4 mg/dL (1.8-2.4) L Total Bilirubin 0.4 mg/dL (0.2-1.0) Aspartate Amino Transferase (AST) 17 U/L (15-37) Alanine Aminotransferase (ALT) 18 U/L (16-63) Alkaline Phosphatase 62 U/L (46-116) Troponin I Quantitative 0.030 ng/mL (0.000-0.055) LO-Gec-M-Type Natriuretic Peptide 3490 pg/mL (0-124) H Total Protein 7.5 g/dL (6.4-8.2) Albumin 3.5 g/dL (3.4-5.0) Albumin/Globulin Ratio 0.9 (1.0-1.7) L Lipase 208 U/L (73-393) Laboratory Tests 07/10/19 17:20 Laboratory Tests 07/10/19 17:20 ASSESSMENT/PLAN ASSESSMENT/PLAN 1. AECOPD with continued tobaccoism 2. Chest pain: possibly from bronchospasm 3. Acute diastolic CHF: appears compensated currently 4. HTN: controlled 5. HLP 6. DM2 7. Possible CKD Recommendations 1. TTE. TSH, lipids, UA Repeat trop, check BMP and Mg and replace Mg and K as warranted 2. Continue with secondary prevention measures 3. Await tests and will consider stress test possibly as an outpt. 4. Smoking cessation DANYELL COLLIER MD 07/11/192105: CARDIAC CONSULT ASSESSMENT/PLAN ASSESSMENT/PLAN Pt. seen and examined. Agree with above DIRECTOR DATA note. 64 y.o male with probable COPD exacerbation. Exam with mild wheezing. EKG abnormal with prior inferior infarct Trop negative. Given renal failure he would be poor candidate for any invasive assessment but given risk factors and EKG, consider outpt stress testing. ADELAIDE ROSARIO APRN Jul 11, 2019 12:53 DANYELL COLLIER MD Jul 11, 2019 21:06
[2019-07-11 13:38] LABS: CALCIUM 8.9 mg/dL (8.5-10.1); CREATININE 2.6 mg/dL (0.7-1.3); GFR 25.1
[2019-07-11 13:58] LABS: BILIRUBIN,URINE NEGATIVE (NEG); CLARITY,URINE CLEAR; COLOR,URINE YELLOW; NITRITE,URINE NEGATIVE (NEG); PH,URINE 5.5; PROTEIN,URINE 100 mg/dL (NEG-TRACE); UROBILINOGEN,URINE 0.2 mg/dL (0.2 mg/dL)
[2019-07-11 14:09] LABS: RBC,URINE 0 /HPF (0-2); WBC,URINE RARE /HPF (0-4)
[2019-07-11 14:10] LABS: BACTERIA,URINE 0 /HPF (0-FEW); SQUAMOUS EPITHELIAL CELL,UR MANY /LPF
[2019-07-11 14:25] VITALS: BP 112/55
--- NOTE | 2019-07-11 16:33 | CARD ---
MR#: [id number] Date of Study: 07/11/2019 Ordering Physician: BRIGIDA EUBANKS, Referring Physician: Alexandrea WESLEY: Shira Pittman APPROVED REPORT EXAM: Two-dimensional and M-mode echocardiogram with Doppler and color Doppler. Other Information Quality : AverageHR: 94bpm INDICATION Chest Pain 2D DIMENSIONS RVDd3.4 (2.9-3.5cm)Left Atrium(2D)4.2 (1.6-4.0cm) IVSd0.8 (0.7-1.1cm)Aortic Root(2D)2.1 (2.0-3.7cm) LVDd6.6 (3.9-5.9cm)LVOT Diameter2.4 (1.8-2.4cm) PWd0.9 (0.7-1.1cm)LVDs4.7 (2.5-4.0cm) FS (%) 28.2 %SV119.0 ml LVEF(%)53.4 (>50%) Aortic Valve AoV Peak Toro.208.5cm/sAoV VTI37.1cm AO Peak GR.17.4mmHgAO Mean GR.10mmHg Mitral Valve MV E Cgdmtyvz61.7cm/sMV E Peak Gr.9mmHg MV DECEL [id number] A Gljpyemw642.7cm/s MV E Mean Gr.4mmHgE/A Ratio0.8 Pulmonary Valve PV Peak Aylwkjyc39.2cm/s Tricuspid Valve RAP [id number] Pulmonary Vein S1 Agtbuyxr49.6cm/sD2 Eyqpbgdg69.7cm/s LEFT VENTRICLE The Left Ventricle is moderately dilated. There is normal left ventricular wall thickness. The left v entricular systolic function is normal and the ejection fraction is within normal range. The Ejection Fraction is 50-55%. There is normal LV segmental wall motion. Transmitral Doppler flow pattern is Gr celi I-abnormal relaxation pattern. RIGHT VENTRICLE The right ventricle is normal size. There is normal right ventricular wall thickness. The right ventr icular systolic function is normal. ATRIA The left atrium is mildly dilated. The right atrium size is normal. The interatrial septum is intact with no evidence for an atrial septal defect or patent foramen ovale as noted on 2-D or Doppler imagi ng. AORTIC VALVE The aortic valve is calcified but opens well. Doppler and Color Flow revealed no significant aortic r egurgitation. There is no significant aortic valvular stenosis. MITRAL VALVE The mitral valve is thickened but opens well. There is no evidence of mitral valve prolapse. There is no mitral valve stenosis. Doppler and Color-flow revealed trace mitral regurgitation. TRICUSPID VALVE The tricuspid valve is normal in structure and function. Doppler and Color Flow revealed trace tricus pid regurgitation. There is no tricuspid valve stenosis. PULMONIC VALVE The pulmonic valve is not well visualized. Doppler and Color Flow revealed no pulmonic valvular regur gitation. There is no pulmonic valvular stenosis. GREAT VESSELS The aortic root is normal in size. The ascending aorta is normal in size. The IVC is normal in size a nd collapses >50% with inspiration. PERICARDIAL EFFUSION There is no pleural effusion. There is no evidence of significant pericardial effusion. Critical Notification Critical Value: No <Conclusion> The left ventricular systolic function is normal and the ejection fraction is within normal range. Th e Ejection Fraction is 50-55%. There is normal LV segmental wall motion. The Left Ventricle is moderately dilated. Signed by : Jesse Parmar, Electronically Approved : 07/11/2019 11:19:01
[2019-07-11 19:00] VITALS: BP 126/67
[2019-07-11] MEDS: ATORVASTATIN CALCIUM 40 MG TABLET. PO SCH (20:56)
[2019-07-11] MEDS: LACTOBACILLUS RHAMNOSUS GG 1 CAPSULE. PO SCH (20:56)
[2019-07-11] MEDS ORDERED: MAGNESIUM SULFATE 2GM 50 ML IV ONE (21:00)
[2019-07-11 22:46] VITALS: BP 120/72
[2019-07-12 03:00] VITALS: BP 125/66
[2019-07-12] MEDS: IPRATRPIUM/ALBUTEROL 0.5/2.5MG 3 ML NEBU. NEB SCH ×4 (03:08→15:58)
[2019-07-12] MEDS: PIPERACILLIN/TAZOBACTAM 3.375 GM in IV NORMAL SALINE 50ML 50 ML IV SCH (05:40)
[2019-07-12 07:00] VITALS: BP 136/82
[2019-07-12] MEDS: ASPIRIN CHEWABLE 81 MG TABLET. PO SCH (08:49)
[2019-07-12] MEDS: CITALOPRAM 10 MG TABLET. PO SCH (08:49)
[2019-07-12] MEDS: FINASTERIDE 5 MG TABLET. PO SCH (08:49)
[2019-07-12] MEDS: LACTOBACILLUS RHAMNOSUS GG 1 CAPSULE. PO SCH (08:49)
[2019-07-12] MEDS: hydroCHLOROthiazide 25 MG TABLET PO SCH (08:49)
[2019-07-12] MEDS: FENOFIBRATE,MICRONIZED 134 MG CAPSULE PO SCH (08:49)
[2019-07-12] MEDS: amLODIPine BESYLATE 10 MG TABLET PO SCH (08:50)
[2019-07-12] MEDS: ATENOLOL 50 MG TABLET. PO SCH (08:50)
[2019-07-12] MEDS: LISINOPRIL 20 MG TABLET PO SCH (08:51)
[2019-07-12] MEDS: ENOXAPARIN 40 MG/0.4 ML SYRINGE. SQ SCH (08:51)
[2019-07-12 11:00] VITALS: BP 126/63
[2019-07-12] MEDS ORDERED: PIPERACILLIN/TAZOBACTAM 2.25 GM in IV NORMAL SALINE 50ML 50 ML IV SCH (12:00)
--- NOTE | 2019-07-12 12:16 | PDOC ---
PULMONARY PROGRESS NOTES Subjective NO CP NO SOA Vitals Vital Signs Date Time Temp Pulse Resp B/P (MAP) Pulse Ox O2 Delivery O2 Flow Rate FiO2 07/12/19 12:10 94 Nasal Cannula 1.0 07/12/19 11:00 98.0 89 15 126/63 (84) 98.0 ROS: No Chest Pain General: Alert, No acute distress Lungs: Wheezing (faint) Cardiovascular: S1 Abdomen: Soft Neuro Exam: Alert Extremities: No Edema Skin: Warm Labs Laboratory Tests Test 07/10/19 17:20 07/11/19 13:05 07/11/19 13:50 White Blood Count 10.6 x10^3/uL (4.0-11.0) Red Blood Count 5.30 x10^6/uL (4.30-5.70) Hemoglobin 16.5 g/dL (13.0-17.5) Hematocrit 48.2 % (39.0-53.0) Mean Corpuscular Volume 91 fL (79-100) Mean Corpuscular Hemoglobin 31 pg (25-35) Mean Corpuscular Hemoglobin Concent 34 g/dL (31-37) Red Cell Distribution Width 13.6 % (11.5-14.5) Platelet Count 326 x10^3/uL (140-400) Neutrophils (%) (Auto) 65 % (31-73) Lymphocytes (%) (Auto) 21 % (24-48) Monocytes (%) (Auto) 11 % (0-9) Eosinophils (%) (Auto) 2 % (0-3) Basophils (%) (Auto) 1 % (0-3) Neutrophils # (Auto) 6.9 x10^3/uL (1.8-7.7) Lymphocytes # (Auto) 2.2 x10^3/uL (1.0-4.8) Monocytes # (Auto) 1.1 x10^3/uL (0.0-1.1) Eosinophils # (Auto) 0.2 x10^3/uL (0.0-0.7) Basophils # (Auto) 0.1 x10^3/uL (0.0-0.2) Prothrombin Time 12.4 SEC (11.7-14.0) Prothromb Time International Ratio 1.0 (0.8-1.1) Sodium Level 141 mmol/L (136-145) 138 mmol/L (136-145) Potassium Level 3.4 mmol/L (3.5-5.1) 4.0 mmol/L (3.5-5.1) Chloride Level 99 mmol/L (98-107) 96 mmol/L (98-107) Carbon Dioxide Level 31 mmol/L (21-32) 27 mmol/L (21-32) Anion Gap 11 (6-14) 15 (6-14) Blood Urea Nitrogen 26 mg/dL (8-26) 38 mg/dL (8-26) Creatinine 1.9 mg/dL (0.7-1.3) 2.6 mg/dL (0.7-1.3) Estimated GFR (Cockcroft-Gault) 36.0 25.1 BUN/Creatinine Ratio 14 (6-20) Glucose Level 132 mg/dL (70-99) 252 mg/dL (70-99) Calcium Level 9.5 mg/dL (8.5-10.1) 8.9 mg/dL (8.5-10.1) Magnesium Level 1.4 mg/dL (1.8-2.4) 1.4 mg/dL (1.8-2.4) Total Bilirubin 0.4 mg/dL (0.2-1.0) Aspartate Amino Transf (AST/SGOT) 17 U/L (15-37) Alanine Aminotransferase (ALT/SGPT) 18 U/L (16-63) Alkaline Phosphatase 62 U/L (46-116) Troponin I Quantitative 0.030 ng/mL (0.000-0.055) < 0.017 ng/mL (0.000-0.055) YK-Hpr-A-Type Natriuretic Peptide 3490 pg/mL (0-124) Total Protein 7.5 g/dL (6.4-8.2) Albumin 3.5 g/dL (3.4-5.0) Albumin/Globulin Ratio 0.9 (1.0-1.7) Lipase 208 U/L (73-393) Triglycerides Level 246 mg/dL (0-150) Cholesterol Level 149 mg/dL (0-200) LDL Cholesterol, Calculated 63 mg/dL (0-100) VLDL Cholesterol, Calculated 49 mg/dL (0-40) Non-HDL Cholesterol Calculated 112 mg/dL (0-129) HDL Cholesterol 37 mg/dL (40-60) Cholesterol/HDL Ratio 4.0 Thyroid Stimulating Hormone (TSH) 0.289 uIU/mL (0.358-3.74) Urine Collection Type Unknown Urine Color Yellow Urine Clarity Clear Urine pH 5.5 Urine Specific [place] >=1.030 Urine Protein 100 mg/dL (NEG-TRACE) Urine Glucose (UA) >=1000 mg/dL (NEG) Urine Ketones (Stick) Trace mg/dL (NEG) Urine Blood Negative (NEG) Urine Nitrite Negative (NEG) Urine Bilirubin Negative (NEG) Urine Urobilinogen Dipstick 0.2 mg/dL (0.2 mg/dL) Urine Leukocyte Esterase Negative (NEG) Urine RBC 0 /HPF (0-2) Urine WBC Rare /HPF (0-4) Urine Squamous Epithelial Cells Many /LPF Urine Bacteria 0 /HPF (0-FEW) Laboratory Tests Test 07/11/19 13:05 07/11/19 13:50 Sodium Level 138 mmol/L (136-145) Potassium Level 4.0 mmol/L (3.5-5.1) Chloride Level 96 mmol/L (98-107) Carbon Dioxide Level 27 mmol/L (21-32) Anion Gap 15 (6-14) Blood Urea Nitrogen 38 mg/dL (8-26) Creatinine 2.6 mg/dL (0.7-1.3) Estimated GFR (Cockcroft-Gault) 25.1 Glucose Level 252 mg/dL (70-99) Calcium Level 8.9 mg/dL (8.5-10.1) Magnesium Level 1.4 mg/dL (1.8-2.4) Troponin I Quantitative < 0.017 ng/mL (0.000-0.055) Triglycerides Level 246 mg/dL (0-150) Cholesterol Level 149 mg/dL (0-200) LDL Cholesterol, Calculated 63 mg/dL (0-100) VLDL Cholesterol, Calculated 49 mg/dL (0-40) Non-HDL Cholesterol Calculated 112 mg/dL (0-129) HDL Cholesterol 37 mg/dL (40-60) Cholesterol/HDL Ratio 4.0 Thyroid Stimulating Hormone (TSH) 0.289 uIU/mL (0.358-3.74) Urine Collection Type Unknown Urine Color Yellow Urine Clarity Clear Urine pH 5.5 Urine Specific [place] >=1.030 Urine Protein 100 mg/dL (NEG-TRACE) Urine Glucose (UA) >=1000 mg/dL (NEG) Urine Ketones (Stick) Trace mg/dL (NEG) Urine Blood Negative (NEG) Urine Nitrite Negative (NEG) Urine Bilirubin Negative (NEG) Urine Urobilinogen Dipstick 0.2 mg/dL (0.2 mg/dL) Urine Leukocyte Esterase Negative (NEG) Urine RBC 0 /HPF (0-2) Urine WBC Rare /HPF (0-4) Urine Squamous Epithelial Cells Many /LPF Urine Bacteria 0 /HPF (0-FEW) Medications Active Scripts Medications Dose Route/Sig Max Daily Dose Days Date Category Finasteride 5 Mg Tablet 5 Mg PO DAILY 07/10/19 Reported Atorvastatin Calcium 40 Mg Tablet 40 Mg PO HS 07/10/19 Reported Lisinopril 20 Mg Tablet 20 Mg PO DAILY 07/10/19 Reported Aspirin 81 Mg Tab.chew 1 Tab PO DAILY 01/21/16 Reported Citalopram Hbr (Citalopram Hydrobromide) 10 Mg Tablet 10 Mg PO DAILY 01/21/16 Reported Fenofibrate 160 Mg Tablet 160 Mg PO DAILY 01/21/16 Reported Ventolin Hfa Inhaler (Albuterol Sulfate) 18 Gm Hfa.aer.ad 1 Puff INH Q6HRS PRN 01/21/16 Reported Bisoprolol-Hctz 5-6.25 Mg Tab (Bisoprolol Fumarate/Hctz) 1 Each Tablet 1 Tab PO DAILY 01/21/16 Reported Amlodipine Besylate 10 Mg Tablet 10 Mg PO DAILY 01/21/16 Reported Impression . 1. Dyspnea with acute hypoxic respiratory failure and chest pain. The patient's symptoms are combination of chronic obstructive pulmonary disease exacerbation along with likely anginal type chest pain. 2. Underlying chronic obstructive pulmonary disease with ongoing tobaccoism. Now comes in with an exacerbation. 3. A 3 mm right upper lobe tiny nodule. Does not need any intervention except a followup CT in a year. The patient sees my partner, Dr. Mobley in the office and I have recommended to follow with him. Another CT chest abnormalities including faint ground glass opacity in the right middle lobe and lingula is nonspecific and clinically does not appear to have any infectious etiology. Plan . 1. Antibiotics can be deescalated 2. Continue bronchodilators. still faint wheezing 3. Smoking cessation counseling provided. 4. Wean off oxygen to keep sats 92 and above. 5. Discussed with RN. Cardiology recommendations. 6. Follow up with Dr. Mobley and will need a CT chest, follow up on the nodule in a year from now. EMMETT LOPEZ MD Jul 12, 2019 12:16
[2019-07-12] MEDS ORDERED: AMOXICILLIN/K CLAV 875/125MG TABLET. PO SCH (13:00)
[2019-07-12 13:49] LABS: CREATININE 1.9 mg/dL (0.7-1.3)
[2019-07-12 13:58] LABS: CALCIUM 9.2 mg/dL (8.5-10.1)
[2019-07-12 15:32] VITALS: BP 131/84
--- NOTE | 2019-07-12 15:48 | PDOC ---
ILANA SIMPSON MIXING HOUSE OPERATOR 07/12/19 1548: CARDIO Progress Notes Date and Time Date of Service 07/12/19 Time of Evaluation 1510 Subjective Subjective: No Chest Pain, Other (breathing improved. ) Vitals Vitals Vital Signs Date Time Temp Pulse Resp B/P (MAP) Pulse Ox O2 Delivery O2 Flow Rate FiO2 07/12/19 12:10 94 Nasal Cannula 1.0 07/12/19 11:00 98.0 89 15 126/63 (84) 98.0 Weight Weight [ ] Input and Output Intake and Output Intake and Output 07/12/19 07:00 Intake Total 1270 ml Output Total 1650 ml Balance -380 ml Intake Oral 1220 ml IV Total 50 ml Output Urine Total 1650 ml Physical Exam HEENT: Neck Supple W Full Motion Chest: Symmetric LUNGS: Other (diminished, no sifnificant wheezing noted. ) Heart: RRR Abdomen: Soft N/T Extremities: 2+ Posterior Tibial Neurology: alert, oriented, follow commands Assessment Assessment 1. Dyspnea secondary to AECOPD 2. Chest pain, mixed: AMI ruled out. possibly from bronchospasm. Echo showed LVEF 50-55% 3. Acute diastolic CHF: appears compensated 4. HTN: controlled 5. HLP 6. DM2 7. АНДРЕЙ on ? CKD 8. tobaccoism; discussed/encouraged cessation Recommendations Recheck BMP, Mg Discontinue HCTZ Supportive care Consider outpatient MPI If renal function better, may discharge from a CV standpoint and f/u in our office with Dr. Parmar as scheduled DANYELL PARMAR MD 07/12/19 1725: CARDIO Progress Notes Plan Plan Patient seen and examined. Agree with above nurse practitioner note. Supportive care from a cardiac standpoint. Consider outpatient stress testing. Repeat labs noted. Potassium supplementation ongoing. Agree with above note. Follow-up in the office as scheduled. ILANA SIMPSON APRN Jul 12, 2019 15:48 DANYELL PARMAR MD Jul 12, 2019 17:25
[2019-07-12] MEDS ORDERED: AMOX1TAB10 PO (16:14)
[2019-07-12] MEDS ORDERED: POTASSIUM CHLORIDE 20 MEQ TABLET.ER. PO ONE (16:15)
[2019-07-12] MEDS ORDERED: AMOX1TAB61 PO (16:15)
[2019-07-12] MEDS ORDERED: BISO5TAB4 PO (16:16)
--- NOTE | 2019-07-12 21:16 | DS ---
DATE OF DISCHARGE: 07/12/2019 ADMISSION DIAGNOSES: Chest pain and chronic obstructive pulmonary disease. DISCHARGE DIAGNOSES: Atypical chest pain, resolving chronic obstructive pulmonary disease, and resolving respiratory failure. HOSPITAL COURSE: The patient is a pleasant 64-year-old male who presented with chest pain. He also has COPD with respiratory failure. He was admitted. We did serial enzymes and serial EKGs. We consulted Cardiology, gave him breathing treatments, oxygen and steroids. Consulted Pulmonary. Basically, today I saw and examined, he was doing well. Lungs were much clear. Heart tones were normal. Abdomen was soft. We plan to discharge. Cardiology has arranged outpatient myocardial perfusion imaging. DISPOSITION: Home. ACTIVITY: As tolerated. DIET: Low sodium. MEDICATIONS: Please see the MRAD. TOTAL TIME: 32 minutes. OMERO PASTOR DO DR: LEV/pan JOB#: [id number] / [id number]
== END 2019-07-12 17:25 | disposition home or self-care (01) | DRG 189 ==
LOC: ER 16:55 → 2 NORTH 17:31
PROVIDERS: ADMIT Family Medicine; ATTEND Family Medicine
DX: J96.01 Acute respiratory failure with hypoxia (principal); I50.31 Acute diastolic (congestive) heart failure; I13.0 Hypertensive heart and chronic kidney disease with heart failure and stage 1 through stage 4 chronic kidney disease, or unspecified chronic kidney disease; J44.1 Chronic obstructive pulmonary disease with (acute) exacerbation; R07.89 Other chest pain; E11.22 Type 2 diabetes mellitus with diabetic chronic kidney disease; E78.00 Pure hypercholesterolemia, unspecified; F17.210 Nicotine dependence, cigarettes, uncomplicated; F41.9 Anxiety disorder, unspecified; M19.90 Unspecified osteoarthritis, unspecified site; E78.5 Hyperlipidemia, unspecified; N18.9 Chronic kidney disease, unspecified; Z82.49 Family history of ischemic heart disease and other diseases of the circulatory system; Z85.038 Personal history of other malignant neoplasm of large intestine; Z87.828 Personal history of other (healed) physical injury and trauma; Z93.3 Colostomy status; Z71.6 Tobacco abuse counseling
CPT/HCPCS: 36415; 71045; 71250; 80048; 80053; 80061; 81001; 83690; 83735; 83880; 84443; 84484; 85025; 85610; 93005; 93306; 94640; 94760; 96361; 96372; 96374; J1650; J2543; J2930; J3475; J7040; J7620; 99285-25; G0378

== ENCOUNTER → 2019-08-02 | Outpatient (CLI) | payer BC ==
[2019-07-12 15:32] VITALS: BP 131/84
[~2019-08-02] MED LIST changes: +AMOX1TAB10 PO; +AMOX1TAB61 PO; +ATOR40TA59 PO; +BISO5TAB4 PO; +FINA5TAB4 PO; +LISI-334 PO; +REGADENOSON 0.4 MG/5 ML DISP.SYRIN. IV ONE
--- NOTE | 2019-08-02 11:43 | RAD ---
MR#: [id number] Date of Study: 08/02/2019 Ordering Physician: DANYELL COLLIER, Referring Physician: JAVIER LARRY Tech: KESHA Beltrán, ARRT (R) (N) APPROVED REPORT Test Type: Pharmacological Stress Nurse/Tech: Starr Camarena RN Test Indications: chest pain Cardiac History: COPD, high cholesterol Medications: See Electronic Medical Record Medical History: See Electronic Medical Record Resting ECG: SR PVC Resting Heart Rate: 54 bpm Resting Blood Pressure: 121/39mmHg Pretest Chest Pain: None Nurse/Tech Notes Lungs CTA, S1S2 Consent: The procedure was explained to the patient in lay terms. Informed consent was witnessed. Toan eout was entered into [employer] 1. History and Stress Test performed by RT Tani (R) (N) Pharm. Details Pharmacologic stress testing was performed using 0.4mg per 5ml of regadenoson given intravenously ove r 7-10 seconds. Stress Symptoms No chest pain or symptoms. POST EXERCISE Reason for Termination: Infusion complete Max HR: 72 bpm Max Blood Pressure: 116/64mmHg Blood Pressure response to exercise: Normal blood pressure response during stress. Heart Rate response to exercise: normal response Chest Pain: No. Arrhythmia: Yes. PVC ST Change: No. INTERPRETATION Stress EKG Conclusion: The resting EKG shows a sinus rhythm with nonspecific ST-T wave changes, a sma ll septal Q wave and a PVC. The stress EKG shows no significant changes from baseline. No EKG evidence of stress-induced ischemia. Imaging Protocol IMAGE PROTOCOL: Rest Tc-99m/stress Tc-99m 1 day Rest: Stress: Viability: Radiopharm.Tc99m AddqiqczdIh08c Sestamibi Zdng99qCj 33mCi Img Date 08/02/2019 08/02/2019 Rest Admin Site:IV - Left AntecubitalAdministrator:RT Tani (R)(N) Stress Admin Site: IV - Left AntecubitalAdministrator: RT Tani (R)(N) STRESS DATA End Diast. Vol.237.0mlAv. Heart Rate65.0bpm End Syst. Vol.142.0mlCO Index BSA0.0L/min Myocardial Pepx962.0gEject. Ijqobnra96.0% Stress Rates Pk. Fill Rate1.78EDV/secLVtime Pk. Fill 125.14msec Pk. Empty Rate1.43ESV/secLVtime Pk. Kxdad385.60msec 1/3 Pk. Fill1.23EDV/sec Stress Scores Regional WT3.00Summed WT27.00 Regional WM0.00Summed WM16.00 LV Perfusion The stress scans have an inferior wall defect. The rest scans have an inferior wall defect. Nuclear imaging shows a probable inferior infarct with minimal eloise-infarction ischemia. No other are as of reversible ischemia are present. Wall Motion Ventricular systolic function has an inferior wall motion abnormality with an ejection fraction of 40 %. LV Perf. Quant 17 Seg. SSS9.00 17 Seg. SRS6.00 17 Seg. SDS4.00 Stress Defect Extent (% LAD)14.40Rest Defect Extent (% LAD)1.90Rev. Defect Extent (% LAD)1.30 Stress Defect Extent (% LCX) 11.30Rest Defect Extent (% LCX)0.00Rev. Defect Extent (% LCX)2.50 Stress Defect Extent (% RCA)20.00Rest Defect Extent (% RCA)34.40Rev. Defect Extent (% RCA)0.00 Stress Defect Extent (% MARY ANNE)20.70Rest Defect Extent (% MARY ANNE)12.80Rev. Defect Extent (% MARY ANNE)2.00 Conclusion 1. No EKG evidence of stressed induced ischemia. 2. Nuclear imaging shows a probable old inferior infarct with minimal eloise-infarct reversibility. 3. Nuclear imaging shows no other areas of reversible ischemia. 4. Ejection fraction is mildly decreased at 40% with an inferior wall motion abnormality. 5. Moderate to moderately low risk Lexiscan nuclear stress test consistent with a prior inferior infa rct. Signed by : Britton Bender MD Electronically Approved : 08/02/2019 11:42:44
== END | disposition home or self-care (01) ==
LOC: NM 07:40
PROVIDERS: ATTEND Internal Medicine Cardiovascular Disease
DX: I49.3 Ventricular premature depolarization (principal); E78.00 Pure hypercholesterolemia, unspecified; J44.9 Chronic obstructive pulmonary disease, unspecified; I10 Essential (primary) hypertension
CPT/HCPCS: 78452; 93017; A9500; J2785

== ENCOUNTER → 2020-01-22 | Outpatient (CLI) | payer BC ==
[~2020-01-22] MED LIST changes: -BISO5TAB4 PO; +BISO5TAB8 PO; -REGADENOSON 0.4 MG/5 ML DISP.SYRIN. IV ONE
--- NOTE | 2020-01-22 09:58 | RAD ---
CT chest without contrast. HISTORY: History of sarcoma, weight loss CT scan of the chest was done without contrast. Comparison is made with a study from June 2019. Thyroid is homogeneous. There are calcified right hilar and mediastinal nodes from granulomatous disease without change. There is no new mediastinal adenopathy. Adrenal glands are normal. Upper poles the kidneys are unremarkable. Visualized portions the liver and spleen are unremarkable. There is a small midline hernia in the upper abdomen containing mesentery. There is a 3 mm density at the cephalad margin of the major fissure on the left which was not definitively identified on the old study., Follow-up may be of benefit. There is a 3 mm nodule along the diaphragm in the left lower lobe which is unchanged from the prior study. There is a 3 mm nodule on image #24 in the posterior right lung which was not evident on the prior study. There is a 2 mm nodule on image #18 in the lateral right upper lobe not definitively identified on the old study. There is a 3 mm nodule on image 31 along the fissure in the right lung not definitively identified on the old study. There is a tiny density on image #30 just anterior to the right major fissure not definitively identified on the old study. There is linear scarring or atelectasis in the right middle lobe and left upper lobe without change from the prior study. No new infiltrates are noted. There is a calcified granuloma in the medial right lower lobe. IMPRESSION: 1. Linear scarring or atelectasis with little change. 2. No new infiltrates. 3. Small new densities in the lungs, early metastatic disease is possible, close interval follow-up recommended. PQRS Compliance Statement: One or more of the following individualized dose reduction techniques were utilized for this examination: 1. Automated exposure control 2. Adjustment of the mA and/or kV according to patient size 3. Use of iterative reconstruction technique Electronically signed by: Tunde Tirado MD (01/22/2020 9:56 AM) [facility]
== END | disposition home or self-care (01) ==
LOC: CT 11:30
PROVIDERS: ATTEND Family Medicine
DX: C49.9 Malignant neoplasm of connective and soft tissue, unspecified (principal); J98.4 Other disorders of lung; R63.4 Abnormal weight loss; K46.9 Unspecified abdominal hernia without obstruction or gangrene
CPT/HCPCS: 71250